=== PATIENT | male | born 1975 | race Caucasian/White ===

== ENCOUNTER 2023-09-18 04:02 | Day surgery (SDC) | payer BC ==
[2023-09-12 14:24] VITALS: BMI 35.2
[2023-09-18 08:51] VITALS: RESP 20
[2023-09-18] MEDS ORDERED: ceFAZolin SODIUM 1 GM VIAL ONE (12:38)
[2023-09-18] MEDS ORDERED: MIDAZOLAM HCL 2 MG/2 ML SINGLE DOSE VIAL ONE (12:38)
[2023-09-18] MEDS ORDERED: ceFAZolin SODIUM 1 GM VIAL IVPB ONE (12:40)
[2023-09-18] MEDS ORDERED: ELECTROLYTE-148 SOLN 1,000 ML IV SCH (13:00)
[2023-09-18 13:10] VITALS: TEMP 97.5
[2023-09-18 13:42] VITALS: BP 118/68; PULSE 57
== END 2023-09-18 13:44 | disposition home or self-care (01) ==
LOC: JASU-SURG 04:02
PROVIDERS: ATTEND Urology
PROC: 0TF4XZZ Fragmentation in Left Kidney Pelvis, External Approach (ICD-10-PCS; principal; 2023-09-18 10:30)
DX: N20.0 Calculus of kidney (principal)